=== PATIENT | female | born 1985 | race Hispanic/Latino ===

== ENCOUNTER 2021-05-19 09:20 | Day surgery (SDC) | payer MEDICAID ==
[2021-05-19 10:12] VITALS: BMI 30.4
[2021-05-19] MEDS ORDERED: Acetaminophen 500 MG TAB PO SCH (10:30)
[2021-05-19] MEDS ORDERED: Iron Sucrose Complex 500 MG in Sodium Chloride 0.9% 250 ML 250 ML IVPB SCH (11:00)
== END 2021-05-19 15:07 | disposition home or self-care (01) ==
LOC: CSHLD/OP 09:20
PROVIDERS: ATTEND Family Medicine
DX: O99.013 Anemia complicating pregnancy, third trimester (principal); O09.33 Supervision of pregnancy with insufficient antenatal care, third trimester; Z3A.34 34 weeks gestation of pregnancy
CPT/HCPCS: 96365; 96366; 99282; J1756; J7050

== ENCOUNTER 2021-06-02 16:06 | Observation (INO) | payer MEDICAID, OTHER, SELFPAY ==
[2021-06-02 16:44] VITALS: BMI 27.8
[2021-06-02] MEDS ORDERED: Promethazine HCl 25 MG/ML VIAL IM PRN (17:17)
[2021-06-02] MEDS ORDERED: Ondansetron PF 4 MG/2 ML Vial IVP PRN (17:17)
[2021-06-02 18:19] LABS: Hemoglobin 8.8 g/dL (12.0-15.5); Mean Corpuscular HGB CONC 28.4 g/dL (32.0-36.0); Mean Corpuscular Hemoglobin 21.9 pg (27.0-33.0); Mean Corpuscular Volume 77.1 fl (81.6-98.3); Mean Platelet Volume 9.6 fl (7.4-10.4); Platelet Count 372 10x3/uL (150-450); RBC Distribution Width 34.9 % (11.5-14.5); Red Blood Cell (RBC) Count 4.02 10x6/uL (3.90-5.03); White Blood Cell (WBC) Count 12.6 10x3/uL (3.5-10.5)
[2021-06-02] MEDS ORDERED: Methylergonovine 0.2 MG/ML VIAL IM PRN (19:37)
[2021-06-02] MEDS ORDERED: Carboprost 250 MCG/ML AMP IM PRN (19:37)
[2021-06-02] MEDS ORDERED: Acetaminophen 500 MG TAB PO PRN (19:37)
[2021-06-02] MEDS ORDERED: hydrALAZINE 20 MG/ML VIAL SLOW IVP PRN (19:37)
[2021-06-02] MEDS ORDERED: Misoprostol 200 MCG TAB PR PRN (19:37)
[2021-06-02] MEDS ORDERED: Lidocaine 1% (PF) 30 ML VIAL SC PRN (19:37)
[2021-06-02] MEDS ORDERED: NS w/ Oxytocin 30 units 500 ML IV SCH (19:45)
[2021-06-02] MEDS ORDERED: Morphine 4 MG/ML VIAL SLOW IVP PRN (19:55)
[2021-06-02] MEDS ORDERED: Betamet Acet/Betamet Na Ph 30 MG/5 ML VIAL IM SCH (20:00)
[2021-06-02] MEDS: Betamet Acet/Betamet Na Ph 30 MG/5 ML VIAL IM SCH (20:39)
[2021-06-02 21:49] LABS: SARS-CoV-2 NAA Rapid Test Not Detected (NotDetected)
[2021-06-02 21:54] LABS: HIV (1/2) Antibody/Antigen Non-Reactive (NonReactive); HIV 1/2 INDEX 0.09 S/CO (<1.00); Hep B Surf Ag Non-Reactive S/CO (NonReactive); Syphilis Antibody Nonreactive (Nonreactive); Syphilis Antibody Index 0.05 S/CO (<1.00 Non-Reactive)
[2021-06-02 22:35] LABS: HBSAg Index 0.19 S/CO (0-0.99)
[2021-06-03] MEDS: Lactated Ringer's 1,000 ML IV SCH ×3 (07:44→19:06)
[2021-06-03 11:24] LABS: Amphetamine Not Detected (NotDetected); Barbiturates Screen Not Detected (NotDetected); Benzodiazepine Screen Not Detected (NotDetected); Cocaine Metabolite Screen Not Detected (NotDetected); Methadone Not Detected (NotDetected); Methamphetamine Not Detected (NotDetected); Opiate Screen Detected (NotDetected); Oxycodone Screen Not Detected (NotDetected); Phencyclidine (PCP) Not Detected (NotDetected); THC/Cannabinoid Screen Not Detected (NotDetected); Tricyclic Screen Not Detected (NotDetected)
[2021-06-03] MEDS: Betamet Acet/Betamet Na Ph 30 MG/5 ML VIAL IM SCH (20:58)
[2021-06-03 22:36] VITALS: BP 111/61; TEMP 98.2
== END 2021-06-03 21:40 | disposition home or self-care (01) ==
LOC: CSHLD/OP 16:06 → CSHLD 19:34 → INTOOBSV 19:34 → CSHANTE 06-03 06:14
PROVIDERS: ADMIT Student in an Organized Health Care Education/Training Program; ATTEND Student in an Organized Health Care Education/Training Program
DX: O47.03 False labor before 37 completed weeks of gestation, third trimester (principal); O36.8130 Decreased fetal movements, third trimester, not applicable or unspecified; O99.013 Anemia complicating pregnancy, third trimester; O09.33 Supervision of pregnancy with insufficient antenatal care, third trimester; D50.9 Iron deficiency anemia, unspecified; Z3A.36 36 weeks gestation of pregnancy; Z20.822 Contact with and (suspected) exposure to COVID-19; Z86.16 Personal history of COVID-19; Z87.59 Personal history of other complications of pregnancy, childbirth and the puerperium; Z79.899 Other long term (current) drug therapy
CPT/HCPCS: 36415; 76815; 76819; 80306; 85027; 86780; 86850; 86900; 86901; 87340; 87389; J0702; J2270; U0002

== ENCOUNTER 2021-06-15 14:41 | Outpatient (CLI) | payer OTHER ==
[2021-06-16 16:39] LABS: SARS-CoV-2 PCR by NAA Not Detected (NotDetected)
== END 2021-06-15 14:42 | disposition home or self-care (01) ==
LOC: CSHLAB 14:41
PROVIDERS: ATTEND Student in an Organized Health Care Education/Training Program
DX: Z20.822 Contact with and (suspected) exposure to COVID-19 (principal)
CPT/HCPCS: U0003; U0005

== ENCOUNTER 2021-06-19 14:00 | Inpatient (IN) | payer SELFPAY ==
[2021-06-20] MEDS ORDERED: Butorphanol Tartrate 1 MG/ML VIAL SLOW IVP PRN (00:55)
[2021-06-20] MEDS ORDERED: Ibuprofen 800 MG TAB PO PRN (00:55)
[2021-06-20] MEDS ORDERED: Lidocaine 1% (PF) 30 ML VIAL SC PRN (00:55)
[2021-06-20] MEDS ORDERED: Carboprost 250 MCG/ML AMP IM PRN (00:55)
[2021-06-20] MEDS ORDERED: hydrALAZINE 20 MG/ML VIAL SLOW IVP PRN ×3 (00:55→22:17)
[2021-06-20] MEDS ORDERED: Acetaminophen 500 MG TAB PO PRN (00:55)
[2021-06-20] MEDS ORDERED: Promethazine HCl 25 MG/ML VIAL IM PRN ×2 (00:55→08:05)
[2021-06-20] MEDS ORDERED: Ondansetron PF 4 MG/2 ML Vial IVP PRN ×4 (00:55→22:17)
[2021-06-20] MEDS ORDERED: Misoprostol 200 MCG TAB PR PRN (00:55)
[2021-06-20] MEDS: Lactated Ringer's 1,000 ML IV SCH ×2 (01:10→06:01)
[2021-06-20] MEDS ORDERED: NS w/ Oxytocin 30 units 500 ML IV SCH ×4 (01:30→22:17)
[2021-06-20 02:00] LABS: Hemoglobin 10.1 g/dL (12.0-15.5); Mean Corpuscular HGB CONC 29.2 g/dL (32.0-36.0); Mean Corpuscular Hemoglobin 23.3 pg (27.0-33.0); Mean Corpuscular Volume 79.9 fl (81.6-98.3); Platelet Count 287 10x3/uL (150-450); Red Blood Cell (RBC) Count 4.33 10x6/uL (3.90-5.03); White Blood Cell (WBC) Count 9.4 10x3/uL (3.5-10.5)
[2021-06-20] MEDS ORDERED: Misoprostol 100 MCG TAB VAG SCH (02:00)
[2021-06-20 02:17] LABS: Hep B Surf Ag Non-Reactive S/CO (NonReactive); Syphilis Antibody Nonreactive (Nonreactive); Syphilis Antibody Index 0.06 S/CO (<1.00 Non-Reactive)
[2021-06-20 02:29] LABS: HBSAg Index 0.16 S/CO (0-0.99)
[2021-06-20] MEDS: Misoprostol 100 MCG TAB VAG SCH ×2 (03:03→17:14)
[2021-06-20] MEDS ORDERED: Fentanyl 2 mcg/Bup 0.1% Cadd 100 ML ONE (07:30)
[2021-06-20] MEDS ORDERED: diphenhydrAMINE 50 MG/ML VIAL IVP PRN (08:05)
[2021-06-20] MEDS ORDERED: ePHEDrine Sulfate 50 MG/10 ML VIAL SLOW IVP PRN (08:05)
[2021-06-20] MEDS ORDERED: Lactated Ringer's 500 ML IV PRN (08:05)
[2021-06-20] MEDS ORDERED: Naloxone HCl 0.4 mg/ml Vial IVP PRN ×2 (08:05)
[2021-06-20] MEDS ORDERED: Acetaminophen 325 MG TAB PO PRN (08:05)
[2021-06-20] MEDS ORDERED: Hydrocerin (Eucerin) Cream 120 gm Jar TOP PRN (08:05)
[2021-06-20] MEDS ORDERED: Fentanyl 2 mcg/Bupivacaine 0.1% Cassette 100 ML EPIDURAL SCH (08:15)
[2021-06-20] MEDS ORDERED: Communication Order-Pharmacy FS SCH (08:15)
[2021-06-20] MEDS ORDERED: Dextrose 5%-Lactated Ringers 1,000 ML IV SCH (10:15)
[2021-06-20 14:11] LABS: Critical Notified Whom: LD RN; RapidComm Collect By LD RN
[2021-06-20 14:13] LABS: Critical Notified Whom: LD RN; RapidComm Collect By LD RN; pH (Cord, venous) 7.358 (7.250-7.350)
[2021-06-20] MEDS ORDERED: Bisacodyl 10 MG SUPP PR PRN ×2 (16:11→22:17)
[2021-06-20] MEDS ORDERED: Preparation H Ointment 28 GM TUBE PR PRN ×2 (16:11→22:17)
[2021-06-20] MEDS ORDERED: Benzocaine-Menthol 82.5 ML CAN TOP PRN ×2 (16:11→22:17)
[2021-06-20] MEDS ORDERED: Milk Of Magnesia 30 ML UDCUP PO PRN ×2 (16:11→22:17)
[2021-06-20] MEDS ORDERED: Boostrix 0.5 ML (Tdap) VIAL IM ONE ×2 (16:11→22:17)
[2021-06-20] MEDS ORDERED: Lanolin Ointment 7 GM TUBE TOP PRN ×2 (16:11→22:17)
[2021-06-20] MEDS ORDERED: Ferrous Sulfate 325 MG TAB PO SCH (17:00)
[2021-06-20] MEDS ORDERED: Docusate Calcium (SURFAK) 240 MG CAP PO SCH (21:00)
[2021-06-20] MEDS: Ibuprofen 800 MG TAB PO SCH (21:01)
[2021-06-20] MEDS ORDERED: Ibuprofen 800 MG TAB PO SCH (22:00)
[2021-06-20] MEDS ORDERED: Misoprostol 200 MCG TAB VAG PRN (22:17)
[2021-06-20] MEDS ORDERED: diphenhydrAMINE 25 MG CAP PO PRN (22:17)
[2021-06-21 04:48] LABS: Hemoglobin 8.9 g/dL (12.0-15.5)
[2021-06-21] MEDS: Ibuprofen 800 MG TAB PO SCH ×2 (05:18→14:16)
[2021-06-21] MEDS ORDERED: Ferrous Sulfate 325 MG TAB PO SCH (08:00)
[2021-06-21] MEDS ORDERED: Prenatal Vitamin 1 TAB PO SCH ×2 (09:00)
[2021-06-21] MEDS ORDERED: Docusate Calcium (SURFAK) 240 MG CAP PO SCH (09:00)
[2021-06-21] MEDS ORDERED: Acetaminophen 500 MG TAB PO SCH (09:15)
[2021-06-21 11:28] VITALS: BP 105/59; TEMP 98.2
== END 2021-06-21 17:00 | disposition home or self-care (01) | DRG 807 ==
LOC: CSHLD 23:40 → CSHPP 06-20 16:53
PROVIDERS: ADMIT Student in an Organized Health Care Education/Training Program; ATTEND Student in an Organized Health Care Education/Training Program
PROC: 3E0DXGC Introduction of Other Therapeutic Substance into Mouth and Pharynx, External Approach (ICD-10-PCS; 2021-06-19)
PROC: 10E0XZZ Delivery of Products of Conception, External Approach (ICD-10-PCS; principal; 2021-06-20)
PROC: 10907ZC Drainage of Amniotic Fluid, Therapeutic from Products of Conception, Via Natural or Artificial Opening (ICD-10-PCS; 2021-06-20)
DX: O36.5930 Maternal care for other known or suspected poor fetal growth, third trimester, not applicable or unspecified (principal); Z37.0 Single live birth; Z3A.38 38 weeks gestation of pregnancy; O99.02 Anemia complicating childbirth; D50.9 Iron deficiency anemia, unspecified; O76 Abnormality in fetal heart rate and rhythm complicating labor and delivery; O36.5130 Maternal care for known or suspected placental insufficiency, third trimester, not applicable or unspecified; O69.81X0 Labor and delivery complicated by cord around neck, without compression, not applicable or unspecified; O62.3 Precipitate labor; Z86.16 Personal history of COVID-19
CPT/HCPCS: 36415; 51702; 82805; 85014; 85018; 85027; 86780; 86850; 86900; 86901; 87340; J2590; J7120